=== PATIENT | female | born 1990 | race Caucasian/White ===

== ENCOUNTER 2019-01-09 11:00 | Emergency (ER) | payer SELFPAY ==
[~2019-01-09] VITALS: Ht 152.4 cm; Wt 56.8 kg
[~2019-01-09 11:00] MED LIST: NO HOME MEDICATIONS
[2019-01-09 11:13] VITALS: BP 142/74; PULSE 72; TEMP 98.5
== END 2019-01-09 11:20 | disposition left against medical advice (07) ==
LOC: COL.ER 11:00
DX: R20.8 Other disturbances of skin sensation (principal)